=== PATIENT | male | born 1990 | race Caucasian/White ===

== ENCOUNTER 2016-07-06 00:22 | Inpatient (IN) ==
[2016-07-06 00:42] LABS: Basophils # 0.1 K/mcL (0.0-0.2); Basophils % 0.7 %; Eosinophils # 0.2 K/mcL (0.0-0.6); Hematocrit 46.1 % (37.5-50.1); Hemoglobin 16.1 g/dL (12.9-16.9); Immature Granulocytes % 0.3 % (0-4); Immature Platelets 3.5 % (1.1-6.1); Lymphocytes # 3.2 K/mcL (0.6-4.6); Lymphocytes % 28.8 %; Mean Corpuscular HGB Conc 34.9 g/dL (31.6-35.5); Mean Corpuscular Hemoglobin 30.1 pg (28.0-33.3); Mean Corpuscular Volume 86.3 fL (83.0-100.0); Mean Platelet Volume 8.6 fL (9.4-12.4); Monocytes # 0.7 K/mcL (0.0-1.3); Neutrophils # 6.8 K/mcL (1.6-8.9); Platelet Count 216 K/mcL (140-400); Red Blood Count 5.34 M/mcL (4.19-5.50); Red Cell Distribution Width 13.1 % (11.5-14.5); Segmented Neutrophils % 62.2 %
[2016-07-06 00:53] LABS: Bilirubin,Urine Negative (Negative); Blood,Urine Negative (Negative); Clarity,Urine Clear (Clear); Color,Urine Yellow (Yellow); Glucose,Urine (UA) Normal (Normal); Ketones,Urine Negative (Negative); Leukocyte Esterase,Urine Negative (Negative); Nitrite,Urine Negative (Negative); PH,Urine 6.5 pH Units (5.0-8.0); Protein,Urine Negative (Neg-Trace); Specific Gravity,Urine 1.005 (1.010-1.025); Urobilinogen,Urine Normal (Normal)
[2016-07-06 00:57] LABS: Acetaminophen < 1.0 mcg/mL (10-30); Alanine Aminotransferase 15 Units/L (0-55); Albumin 4.1 g/dL (3.5-5.0); Albumin/Globulin Ratio 1.1 (1.1-2.2); Alkaline Phosphatase 66 Units/L (38-126); Aspartate Amino Transferase 21 Units/L (5-34); BUN/Creatinine Ratio 14 (6-26); Bilirubin,Direct 0.2 mg/dL (0.0-0.5); Bilirubin,Indirect 0.2 mg/dL (0.0-1.2); Bilirubin,Total 0.4 mg/dL (0.2-1.2); Blood Urea Nitrogen 13 mg/dL (8-26); Carbon Dioxide 24 mEq/L (19-29); Chloride 103 mEq/L (98-109); Ethanol 203 mg/dL (0-10); Globulin 3.7 g/dL (2.4-3.5); Glucose 54 mg/dL (70-99); Osmolality,Calculated 284 (280-300); Salicylate < 5.0 mg/dL (15-30); Sodium 138 mEq/L (136-145); Total Protein 7.8 g/dL (6.0-8.3); eGFR For African Americans > 60 (> 60); eGFR For Non-African Americans > 60 (> 60)
[2016-07-06 00:59] LABS: Amphetamine Screen,Urine Negative ng/mL (Cutoff=1000); Barbiturate Screen,Urine Negative ng/mL (Cutoff=200); Benzodiazepines Screen,Urine Negative ng/mL (Cutoff=200); Cannabinoid Screen,Urine Negative ng/mL (Cutoff = 50); Cocaine Screen,Urine Negative ng/mL (Cutoff= 300); Opiate Screen,Urine Negative ng/mL (Cutoff=300); Phencyclidine Screen,Urine Negative ng/mL (Cutoff=25)
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
[2016-07-06 01:17] LABS: Thyroid Stimulating Hormone 3.055 mcIU/mL (0.350-4.840)
[2016-07-06] MEDS ORDERED: *HR* LORazepam 2 MG/ML VIAL IM ONE (01:56)
[2016-07-06] MEDS ORDERED: *HR* LORazepam 2 MG/ML VIAL ONE (01:58)
--- NOTE | 2016-07-06 07:19 | Emergency Department Note ---
Disposition Clinical Impression: Acute anxiety, ETOH abuse Depression Qualifiers: Depression Type: major depressive disorder Major depression recurrence: single episode Active/Remission status: currently active Major depression episode severity: moderate Qualified Code(s): F32.1 - Major depressive disorder, single episode, moderate Disposition: Admitted As Inpatient Condition: Good Referrals: NO,PCP [Primary Care Provider] - Forms: ED Satisfaction Letter Time of Disposition: 09:32 General Adult HPI - General Chief complaint: ED Psychiatric Symptoms Stated complaint: HI Time Seen by Provider: 07/06/16 00:29 Source: patient Limitations: no limitations - History of Present Illness Pain Scale: 0 - Related Data Previous Rx's Medication Instructions Recorded Citalopram [CeleXA] 20 mg PO DAILY #30 tablet 12/17/15 HydrOXYzine Pamoate 50 mg PO TID PRN #45 capsule 12/17/15 Quetiapine Fumarate [Seroquel] 50 mg PO HS PRN #60 tablet 12/17/15 Allergies Allergy/AdvReac Type Severity Reaction Status Date / Time haloperidol [From Haldol] AdvReac See Verified 07/06/16 00:27 Comments Constitutional: Denies: fever, chills, weakness ENT ED: Denies: throat pain, congestion, dysphagia Cardiovascular: Denies: chest pain, palpitations, dyspnea on exertion, edema, syncope Respiratory: Denies: cough, dyspnea, wheezes Gastrointestinal: Denies: abdominal pain, nausea, vomiting, diarrhea Genitourinary: Denies: urgency, dysuria, frequency, hematuria Musculoskeletal: Denies: back pain, neck pain, joint swelling, arthralgia Integumentary: Denies: rash, abrasion Neurological: Denies: headache, weakness, numbness, confusion Psychiatric: Reports: homicidal thoughts, other (Racing thoughts.). Denies: suicidal thoughts, auditory hallucinations, visual hallucinations Endocrine: Denies: fatigue Past Medical History - Past Medical History Medical history: Reports: no medical history Psychiatric history: Reports: anxiety, depression, prior suicide attempt, previous psychiatric hospitalization, other - Social History Smoking Status: Current every day smoker Smokeless Tobacco Status: No Alcohol use: Reports: occasionally, recent Drug use: Reports: opiates, marijuana Physical Exam - General Limitations: no limitations General appearance: alert, in no apparent distress, appears intoxicated Course - Reevaluation(s) Reevaluation #1: Patient was signed out to me at 7 AM by the department overnight ED attending Dr. Barlow. Please see copy of her notes for details of the initial evaluation and management. Received patient at 7 AM. Patient was treated have a repeat alcohol level, then have mental health consultation for homicidal ideations. Disposition pending. Patient is resting comfortably is hungry breakfast disorder. Patient stable Time: 07:18 Reevaluation #2: Repeat alcohol level came back as 58. Patient is medically cleared for mental health evaluation. Multiple services being contacted. Disposition pending. Patient stable. Time: 07:26 Reevaluation #3: She has had mental health evaluation, they have decided inpatient admission is warranted. Orders were placed. [place] slip on chart. Patient to be admitted in stable condition. Time: 09:31 Vital Signs Temperature 97.6 F 07/06/16 00:23 Pulse Rate 99 07/06/16 00:23 Respiratory Rate 18 07/06/16 00:23 Blood Pressure 131/80 07/06/16 00:23 O2 Sat by Pulse Oximetry 96 07/06/16 00:23 Temperature 97.6 F 07/06/16 04:16 Pulse Rate 93 07/06/16 04:16 Respiratory Rate 16 07/06/16 04:16 Blood Pressure 105/62 07/06/16 04:16 O2 Sat by Pulse Oximetry 96 07/06/16 04:16 Oxygen Delivery Oxygen Delivery Room Air Medical Decision Making - Lab Data Result diagrams: 07/06/16 00:36 07/06/16 00:36 Lab Results 07/06/16 07/06/16 07/06/16 Range/Units 00:36 00:36 00:45 WBC 10.9 (4.3-11.1) K/mcL RBC 5.34 (4.19-5.50) M/mcL Hgb 16.1 (12.9-16.9) g/dL Hct 46.1 (37.5-50.1) % MCV 86.3 (83.0-100.0) fL MCH 30.1 (28.0-33.3) pg MCHC 34.9 (31.6-35.5) g/dL RDW 13.1 (11.5-14.5) % Plt Count 216 (140-400) K/mcL MPV 8.6 L (9.4-12.4) fL Immature Gran % 0.3 (0-4) % Seg Neutrophils % 62.2 % Lymphocytes % 28.8 % Monocytes % 6.0 % Eosinophils % 2.0 % Basophils % 0.7 % Neutrophils # 6.8 (1.6-8.9) K/mcL Lymphocytes # 3.2 (0.6-4.6) K/mcL Monocytes # 0.7 (0.0-1.3) K/mcL Eosinophils # 0.2 (0.0-0.6) K/mcL Basophils # 0.1 (0.0-0.2) K/mcL Immature Plt Fraction 3.5 (1.1-6.1) % Sodium 138 (136-145) mEq/L Potassium 4.0 (3.5-4.5) mEq/L Chloride 103 (98-109) mEq/L Carbon Dioxide 24 (19-29) mEq/L BUN 13 (8-26) mg/dL Creatinine 0.93 (0.72-1.25) mg/dL Est GFR ( Amer) > 60 (> 60) Est GFR (Non-Af Amer) > 60 (> 60) BUN/Creatinine Ratio 14 (6-26) Glucose 54 L (70-99) mg/dL Calculated Osmolality 284 (280-300) Calcium 9.0 (8.6-10.8) mg/dL Total Bilirubin 0.4 (0.2-1.2) mg/dL Direct Bilirubin 0.2 (0.0-0.5) mg/dL Indirect Bilirubin 0.2 (0.0-1.2) mg/dL AST 21 (5-34) Units/L ALT 15 (0-55) Units/L Alkaline Phosphatase 66 (38-126) Units/L Serum Total Protein 7.8 (6.0-8.3) g/dL Albumin 4.1 (3.5-5.0) g/dL Globulin 3.7 H (2.4-3.5) g/dL Albumin/Globulin Ratio 1.1 (1.1-2.2) TSH 3.055 (0.350-4.840) mcIU/mL Urine Color Yellow (Yellow) Urine Clarity Clear (Clear) Urine pH 6.5 (5.0-8.0) pH Units Ur Specific [place] 1.005 L (1.010-1.025) Urine Protein Negative (Neg-Trace) mg/dL Urine Glucose (UA) Normal (Normal) mg/dL Urine Ketones Negative (Negative) mg/dL Urine Blood Negative (Negative) Urine Nitrite Negative (Negative) Urine Bilirubin Negative (Negative) Urine Urobilinogen Normal (Normal) mg/dL Ur Leukocyte Esterase Negative (Negative) Salicylates < 5.0 L (15-30) mg/dL Urine Opiates Screen (Ivfgkv=978) ng/mL Acetaminophen < 1.0 L (10-30) mcg/mL Ur Barbiturates Screen (Fujdke=034) ng/mL Ur Phencyclidine Scrn (Cutoff=25) ng/mL Ur Amphetamines Screen (Wfptbw=5646) ng/mL U Benzodiazepines Scrn (Onuiqj=441) ng/mL Urine Cocaine Screen (Cutoff= 300) ng/mL U Marijuana (THC) Screen (Cutoff = 50) ng/mL Ethyl Alcohol 203 H (0-10) mg/dL 07/06/16 07/06/16 Range/Units 00:45 06:55 WBC (4.3-11.1) K/mcL RBC (4.19-5.50) M/mcL Hgb (12.9-16.9) g/dL Hct (37.5-50.1) % MCV (83.0-100.0) fL MCH (28.0-33.3) pg MCHC (31.6-35.5) g/dL RDW (11.5-14.5) % Plt Count (140-400) K/mcL MPV (9.4-12.4) fL Immature Gran % (0-4) % Seg Neutrophils % % Lymphocytes % % Monocytes % % Eosinophils % % Basophils % % Neutrophils # (1.6-8.9) K/mcL Lymphocytes # (0.6-4.6) K/mcL Monocytes # (0.0-1.3) K/mcL Eosinophils # (0.0-0.6) K/mcL Basophils # (0.0-0.2) K/mcL Immature Plt Fraction (1.1-6.1) % Sodium (136-145) mEq/L Potassium (3.5-4.5) mEq/L Chloride (98-109) mEq/L Carbon Dioxide (19-29) mEq/L BUN (8-26) mg/dL Creatinine (0.72-1.25) mg/dL Est GFR ( Amer) (> 60) Est GFR (Non-Af Amer) (> 60) BUN/Creatinine Ratio (6-26) Glucose (70-99) mg/dL Calculated Osmolality (280-300) Calcium (8.6-10.8) mg/dL Total Bilirubin (0.2-1.2) mg/dL Direct Bilirubin (0.0-0.5) mg/dL Indirect Bilirubin (0.0-1.2) mg/dL AST (5-34) Units/L ALT (0-55) Units/L Alkaline Phosphatase (38-126) Units/L Serum Total Protein (6.0-8.3) g/dL Albumin (3.5-5.0) g/dL Globulin (2.4-3.5) g/dL Albumin/Globulin Ratio (1.1-2.2) TSH (0.350-4.840) mcIU/mL Urine Color (Yellow) Urine Clarity (Clear) Urine pH (5.0-8.0) pH Units Ur Specific [place] (1.010-1.025) Urine Protein (Neg-Trace) mg/dL Urine Glucose (UA) (Normal) mg/dL Urine Ketones (Negative) mg/dL Urine Blood (Negative) Urine Nitrite (Negative) Urine Bilirubin (Negative) Urine Urobilinogen (Normal) mg/dL Ur Leukocyte Esterase (Negative) Salicylates (15-30) mg/dL Urine Opiates Screen Negative (Buexkz=291) ng/mL Acetaminophen (10-30) mcg/mL Ur Barbiturates Screen Negative (Fijzuh=233) ng/mL Ur Phencyclidine Scrn Negative (Cutoff=25) ng/mL Ur Amphetamines Screen Negative (Xhmtpm=4789) ng/mL U Benzodiazepines Scrn Negative (Pgrmhz=073) ng/mL Urine Cocaine Screen Negative (Cutoff= 300) ng/mL U Marijuana (THC) Screen Negative (Cutoff = 50) ng/mL Ethyl Alcohol 58 H (0-10) mg/dL
[2016-07-06] MEDS: Nicotine 21 MG PATCH.TD24 TD SCH (10:17)
--- NOTE | 2016-07-06 13:14 | Psychiatry History & Physical ---
Date of Encounter: 07/06/16 Time of Encounter: 13:12 History of Present Illness Patient Stated Chief Complaint: homicidal,etoh intox Medicare Admission Attestation: For traditional Medicare patients the provided hospital inpatient services are reasonable and necessary and in the case of services not specified as inpatient -only under 42 CFR 419.22 (n), that they are appropriately provided as inpatient services in accordance 42 CFR 412.3. For [facility] the patient may reasonably be expected to be discharged or transferred to a hospital within 96 hours after admission to the Critical [facility]. Admitted From: Emergency Dept History of Present Illness: Mr. Jensen is a 26 year old male admitted from the emergency room for evaluation treatment of depression and homicidal ideation and alcohol intoxication. Patient has history of depression and alcohol abuse, they had an argument with his stepfather and was thinking about killing Him. He decided to come to the hospital to get some help and in the ER he was intoxicated, he was monitored until medically clear to be admitted to behavioral health. Patient had psychiatric hospitalization at this hospital from December 14 to 12/17/2015 with a diagnosis of depression and anxiety and alcohol abuse. The patient did not follow up as advised by continued to take his medication Seroquel and Celexa and hydroxyzine but he was not taking it regularly. He reports poor sleep, irritability, depressed mood, lack of motivation and a noncompliance with treatment. Past Med Surg Social Fam HX - Past Medical History Medical history: no medical history - Past Psychiatric History Psychiatric history: Reports: anxiety, depression, previous psychiatric hospitalization Past psychiatric history details: Hospitalization from December 14 to 12/17/2015 at [facility] for similar presentation. Family psychiatric history: Unknown Family History of Suicide: Unknown - Social History Smoking Status: Current every day smoker Smokeless Tobacco Status: No Alcohol use: occasionally, recent Drug use: opiates, marijuana Medications & Allergies Citalopram [CeleXA] 20 mg PO DAILY #30 tablet 12/17/15 [Rx] HydrOXYzine Pamoate 50 mg PO TID PRN #45 capsule 12/17/15 [Rx] Quetiapine Fumarate [Seroquel] 50 mg PO HS PRN #60 tablet 12/17/15 [Rx] Allergies haloperidol [From Haldol] Adverse Reaction (Verified 07/06/16 00:27) See Comments Patient reports, "It gave me lock jaw." Review of Systems Psychiatric: Reports: depression, anxiety, homicidal ideation, other (Alcohol intoxication) Mental Status Exam Patient orientation: Yes Person, Yes Time, Yes Place Level of alertness: Alert Patient appearance: Appropriate, Unkempt Behavior: cooperative, anxious Psychomotor activity: Normal Eye contact: Maintains Eye Contact Mood description: Depressed, Anxious Affect description: constricted, dysphoric, anxious Speech pattern: Normal rate, Normal rhythm, Normal tone, Appropriate Speech volume: Normal Thought process: Linear, Goal Oriented Thought content: No Suicidal ideation, Yes Homicidal ideation, No Overt delusions Perceptual disturbances: No Auditory hallucinations, No Visual hallucinations Attention span: Capable of Focused Attention Memory description: Grossly Intact Patient reliability: Reliable Historian Intelligence estimate: Below Average Judgment: Limited Insight: Partial Results - Vital Signs Vital signs: Temp Pulse Resp BP Pulse Ox 97.6 F 93 0 0/0 96 07/06/16 04:16 07/06/16 04:16 07/06/16 10:40 07/06/16 10:40 07/06/16 04:16 - Labs Labs: Laboratory Last Values WBC 10.9 K/mcL (4.3-11.1) 07/06/16 00:36 RBC 5.34 M/mcL (4.19-5.50) 07/06/16 00:36 Hgb 16.1 g/dL (12.9-16.9) 07/06/16 00:36 Hct 46.1 % (37.5-50.1) 07/06/16 00:36 MCV 86.3 fL (83.0-100.0) 07/06/16 00:36 MCH 30.1 pg (28.0-33.3) 07/06/16 00:36 MCHC 34.9 g/dL (31.6-35.5) 07/06/16 00:36 RDW 13.1 % (11.5-14.5) 07/06/16 00:36 Plt Count 216 K/mcL (140-400) 07/06/16 00:36 MPV 8.6 fL (9.4-12.4) L 07/06/16 00:36 Immature Gran % 0.3 % (0-4) 07/06/16 00:36 Seg Neutrophils % 62.2 % 07/06/16 00:36 Lymphocytes % 28.8 % 07/06/16 00:36 Monocytes % 6.0 % 03 00:36 Eosinophils % 2.0 % 07/06/16 00:36 Basophils % 0.7 % 07/06/16 00:36 Neutrophils # 6.8 K/mcL (1.6-8.9) 07/06/16 00:36 Lymphocytes # 3.2 K/mcL (0.6-4.6) 07/06/16 00:36 Monocytes # 0.7 K/mcL (0.0-1.3) 07/06/16 00:36 Eosinophils # 0.2 K/mcL (0.0-0.6) 07/06/16 00:36 Basophils # 0.1 K/mcL (0.0-0.2) 07/06/16 00:36 Immature Plt Fraction 3.5 % (1.1-6.1) 07/06/16 00:36 Sodium 138 mEq/L (136-145) 07/06/16 00:36 Potassium 4.0 mEq/L (3.5-4.5) 07/06/16 00:36 Chloride 103 mEq/L (98-109) 07/06/16 00:36 Carbon Dioxide 24 mEq/L (19-29) 07/06/16 00:36 BUN 13 mg/dL (8-26) 07/06/16 00:36 Creatinine 0.93 mg/dL (0.72-1.25) 07/06/16 00:36 Est GFR ( Amer) > 60 (> 60) 07/06/16 00:36 Est GFR (Non-Af Amer) > 60 (> 60) 07/06/16 00:36 BUN/Creatinine Ratio 14 (6-26) 07/06/16 00:36 Glucose 54 mg/dL (70-99) L 07/06/16 00:36 Calculated Osmolality 284 (280-300) 07/06/16 00:36 Calcium 9.0 mg/dL (8.6-10.8) 07/06/16 00:36 Total Bilirubin 0.4 mg/dL (0.2-1.2) 07/06/16 00:36 Direct Bilirubin 0.2 mg/dL (0.0-0.5) 07/06/16 00:36 Indirect Bilirubin 0.2 mg/dL (0.0-1.2) 07/06/16 00:36 AST 21 Units/L (5-34) 07/06/16 00:36 ALT 15 Units/L (0-55) 07/06/16 00:36 Alkaline Phosphatase 66 Units/L (38-126) 07/06/16 00:36 Serum Total Protein 7.8 g/dL (6.0-8.3) 07/06/16 00:36 Albumin 4.1 g/dL (3.5-5.0) 07/06/16 00:36 Globulin 3.7 g/dL (2.4-3.5) H 07/06/16 00:36 Albumin/Globulin Ratio 1.1 (1.1-2.2) 07/06/16 00:36 TSH 3.055 mcIU/mL (0.350-4.840) 07/06/16 00:36 Urine Color Yellow (Yellow) 07/06/16 00:45 Urine Clarity Clear (Clear) 07/06/16 00:45 Urine pH 6.5 pH Units (5.0-8.0) 07/06/16 00:45 Ur Specific [place] 1.005 (1.010-1.025) L 07/06/16 00:45 Urine Protein Negative mg/dL (Neg-Trace) 07/06/16 00:45 Urine Glucose (UA) Normal mg/dL (Normal) 07/06/16 00:45 Urine Ketones Negative mg/dL (Negative) 07/06/16 00:45 Urine Blood Negative (Negative) 07/06/16 00:45 Urine Nitrite Negative (Negative) 07/06/16 00:45 Urine Bilirubin Negative (Negative) 07/06/16 00:45 Urine Urobilinogen Normal mg/dL (Normal) 07/06/16 00:45 Ur Leukocyte Esterase Negative (Negative) 07/06/16 00:45 Salicylates < 5.0 mg/dL (15-30) L 07/06/16 00:36 Urine Opiates Screen Negative ng/mL (Wgdifv=190) 07/06/16 00:45 Acetaminophen < 1.0 mcg/mL (10-30) L 07/06/16 00:36 Ur Barbiturates Screen Negative ng/mL (Wyuykt=771) 07/06/16 00:45 Ur Phencyclidine Scrn Negative ng/mL (Cutoff=25) 07/06/16 00:45 Ur Amphetamines Screen Negative ng/mL (Ewznkv=8210) 07/06/16 00:45 U Benzodiazepines Scrn Negative ng/mL (Utczqt=766) 07/06/16 00:45 Urine Cocaine Screen Negative ng/mL (Cutoff= 300) 07/06/16 00:45 U Marijuana (THC) Screen Negative ng/mL (Cutoff = 50) 07/06/16 00:45 Ethyl Alcohol 58 mg/dL (0-10) H 07/06/16 06:55 Assessment and Plan (1) Homicidal ideation Current visit: Yes Status: Acute Plan: Admit inpatient for safety and stabilization, Close observation, Suicide Precautions per unit protocol, Encourage participation in unit milieu, Group Therapy, Monitor sleep, Monitor appetite Risks, benefits, side effects, alternatives discussed w/pt: Yes Patient agreeable to treatment: Yes (2) Alcohol dependence Current visit: No Status: Acute Plan: Admit inpatient for safety and stabilization, Close observation, Suicide Precautions per unit protocol, Encourage participation in unit milieu, Group Therapy, Monitor sleep, Monitor appetite Risks, benefits, side effects, alternatives discussed w/pt: Yes Patient agreeable to treatment: Yes Qualifiers: Substance use status: with intoxication Complication of substance-induced condition: uncomplicated Qualified Code(s): F10.220 - Alcohol dependence with intoxication, uncomplicated
[2016-07-06] MEDS ORDERED: MOM Conc 10 ML UD.LIQ PO PRN (14:08)
[2016-07-06] MEDS ORDERED: *HR* LORazepam 2 MG/ML VIAL IM PRN (14:08)
[2016-07-06] MEDS ORDERED: Mag Hydrox/Al Hydrox/Simeth 30 ML UDC PO PRN (14:08)
[2016-07-06] MEDS ORDERED: traZODone 50 MG TABLET PO PRN (14:08)
[2016-07-06] MEDS ORDERED: Ziprasidone 20 MG CAPSULE PO PRN (14:15)
[2016-07-06] MEDS ORDERED: Ziprasidone injection 20 MG/ML VIAL IM PRN (14:15)
[2016-07-06] MEDS: *HR* LORazepam 1 MG TABLET PO PRN (21:42)
[2016-07-07] MEDS: Nicotine 21 MG PATCH.TD24 TD SCH (08:41)
[2016-07-07] MEDS: *HR* LORazepam 1 MG TABLET PO PRN ×2 (10:52→20:59)
--- NOTE | 2016-07-07 12:55 | Psychiatry Progress Note ---
Date of Encounter: 07/07/16 Time of Encounter: 12:38 Subjective Interval history: Patient is seen for follow-up. Staff report he is cooperative and compliant with his medication interacting appropriately with his peers and staff. He reported improved sleep and denies homicidal ideation. He is concerned about AN introversive female patient slouched and disruptive, he stated to both reported is feeling to the nurse. He denied having any withdrawal symptoms from alcohol and responded well to when necessary Ativan. Reviewed medication was held and discussed with him how to improve his communication and socialization. He tell me he is anxious around people and having difficulty communicating to others. Review of Systems Psychiatric: Reports: depression, anxiety, homicidal ideation, other (Alcohol intoxication) Objective: Exam Patient orientation: Yes Person, Yes Time, Yes Place Level of alertness: Alert Patient appearance: Appropriate, Well Groomed Behavior: cooperative, anxious, guarded Psychomotor activity: Normal Eye contact: Maintains Eye Contact Mood description: Depressed, Anxious Affect description: constricted, anxious Speech pattern: Normal rate, Normal rhythm, Normal tone, Appropriate Speech volume: Normal Thought process: Linear, Goal Oriented Thought content: No Suicidal ideation, No Homicidal ideation, No Overt delusions Perceptual disturbances: No Auditory hallucinations, No Visual hallucinations Judgment: Limited Insight: Partial Results - Vital Signs Vital Signs: Temp Pulse Resp BP Pulse Ox 98.3 F 75 18 130/85 96 07/07/16 10:51 07/07/16 10:51 07/07/16 10:51 07/07/16 10:51 07/06/16 04:16 Assessment and Plan (1) Homicidal ideation Current visit: Yes Status: Acute Plan: Continue hospitalization, Close observation, Suicide Precautions per unit protocol, Encourage participation in unit milieu, Group Therapy, Monitor sleep, Monitor appetite Risks, benefits, side effects, alternatives discussed w/pt: Yes Patient agreeable to treatment: Yes (2) Alcohol dependence Current visit: No Status: Acute Risks, benefits, side effects, alternatives discussed w/pt: Yes Patient agreeable to treatment: Yes Qualifiers: Substance use status: with intoxication Complication of substance-induced condition: uncomplicated Qualified Code(s): F10.220 - Alcohol dependence with intoxication, uncomplicated Consult Discharge Plan - Plan Referrals: NO,PCP [Primary Care Provider] -
[2016-07-08] MEDS: Nicotine 21 MG PATCH.TD24 TD SCH (09:05)
[2016-07-08] MEDS: Acetaminophen 325 MG TABLET PO PRN (11:38)
[2016-07-08] MEDS: hydrOXYzine pamoate 25 MG CAPSULE PO PRN ×2 (11:38→16:46)
[2016-07-08] MEDS ORDERED: cloNIDine HCl 0.1 MG TABLET PO PRN (12:30)
--- NOTE | 2016-07-08 19:07 | Psychiatry Progress Note ---
Date of Encounter: 07/08/16 Time of Encounter: 19:04 Subjective Interval history: Pt reports that he gets angry very quickly and does not tolerate ignorant people and make threatening remarks to them. His impulsivity has brought him here. He is sleeping well now. No s/e to Celexa. Review of Systems Constitutional: Denies: fever, chills, weakness, weight change Eyes: Denies: eye pain, vision change Ears, Nose, Throat: Denies: ear pain, throat pain, dental pain, hearing loss, congestion Cardiovascular: Denies: chest pain, palpitations, dyspnea on exertion Respiratory: Denies: cough, dyspnea, wheezes Gastrointestinal: Denies: abdominal pain, nausea, vomiting, diarrhea, constipation Musculoskeletal: Denies: joint swelling, joint pain Neurological: Denies: headache, weakness, numbness, memory loss Psychiatric: Reports: anxiety, other (Alcohol intoxication, anger outburst.) Objective: Exam Patient orientation: Yes Person, Yes Time, Yes Place Level of alertness: Alert Patient appearance: Appropriate, Well Groomed Behavior: cooperative, anxious, guarded Psychomotor activity: Normal Eye contact: Maintains Eye Contact Mood description: Angry, Depressed, Anxious, Irritable Affect description: constricted, anxious Speech pattern: Normal rate, Normal rhythm, Normal tone, Appropriate Speech volume: Normal Thought process: Linear, Goal Oriented Thought content: No Suicidal ideation, No Homicidal ideation, No Overt delusions Perceptual disturbances: No Auditory hallucinations, No Visual hallucinations Judgment: Limited Insight: Partial Results - Vital Signs Vital Signs: Temp Pulse Resp BP Pulse Ox 98.4 F 73 16 140/96 96 07/08/16 16:00 07/08/16 16:00 07/08/16 16:00 07/08/16 16:00 07/06/16 04:16 Assessment and Plan (1) Acute anxiety Current visit: Yes Status: Acute Plan: Continue hospitalization, Close observation, Suicide Precautions per unit protocol, Encourage participation in unit milieu, Group Therapy, Monitor sleep, Monitor appetite (2) Depression Current visit: Yes Status: Acute Plan: Continue hospitalization, Close observation, Suicide Precautions per unit protocol, Encourage participation in unit milieu, Group Therapy, Monitor sleep, Monitor appetite Additional Plan: Pt will benefit from addition of a 2nd generation anti psychotic to address agitation and impulsivity and depression augmentation. Risks, benefits, side effects, alternatives discussed w/pt: Yes Patient agreeable to treatment: Yes Qualifiers: Depression Type: major depressive disorder Major depression recurrence: recurrent Active/Remission status: currently active Major depression episode severity: severe Psychotic features: with psychotic features Qualified Code(s): F33.3 - Major depressive disorder, recurrent, severe with psychotic symptoms (3) ETOH abuse Current visit: Yes Status: Acute Plan: Continue hospitalization, Close observation, Suicide Precautions per unit protocol, Encourage participation in unit milieu, Group Therapy, Monitor sleep, Monitor appetite (4) Alcohol dependence Current visit: No Status: Acute Plan: Continue hospitalization, Close observation, Suicide Precautions per unit protocol, Encourage participation in unit milieu, Group Therapy, Monitor sleep, Monitor appetite Risks, benefits, side effects, alternatives discussed w/pt: Yes Patient agreeable to treatment: Yes Qualifiers: Substance use status: with intoxication Complication of substance-induced condition: uncomplicated Qualified Code(s): F10.220 - Alcohol dependence with intoxication, uncomplicated (5) Depression Current visit: No Status: Acute Plan: Continue hospitalization, Close observation, Suicide Precautions per unit protocol, Encourage participation in unit milieu, Group Therapy, Monitor sleep, Monitor appetite Qualifiers: Depression Type: major depressive disorder Major depression recurrence: recurrent Active/Remission status: currently active Major depression episode severity: moderate Qualified Code(s): F33.1 - Major depressive disorder, recurrent, moderate (6) Generalized anxiety disorder Current visit: No Status: Acute Consult Discharge Plan - Plan Referrals: [facility] [Outside] - 07/11/16 10:45 am (The above appointment is with Luana Chu. Please arrive 15 minutes early to complete paperwork. Please bring your insurance card, photo ID and medications in their original bottles. If you do not have insurance, bring proof of income to apply for the sliding fee scale. If you are unable to keep this appointment , 24 hour business notice of cancellation is expected. ) Merged with [facility] [Outside] - 07/15/16 11:00 am (The above appointment is with Hailey Lopez. In order to have your case transferred to the [facility] office, you must meet with Hailey once so she may discuss transfer with you, and ensure smooth transition into the [facility] office.)
[2016-07-08] MEDS ORDERED: OLANZapine 5 MG TAB.RAPDIS PO SCH (19:30)
[2016-07-08] MEDS ORDERED: *HR* LORazepam 1 MG TABLET PO PRN (21:00)
[2016-07-08] MEDS ORDERED: *HR* LORazepam 1 MG TABLET PO SCH (21:00)
[2016-07-09] MEDS ORDERED: *HR* LORazepam 1 MG TABLET PO PRN (09:00)
[2016-07-09] MEDS ORDERED: Nicotine 2 MG GUM BC PRN (09:44)
[2016-07-09] MEDS: *HR* LORazepam 1 MG TABLET PO SCH ×3 (09:48→21:38)
[2016-07-09] MEDS: Nicotine 21 MG PATCH.TD24 TD SCH (09:59)
--- NOTE | 2016-07-09 13:20 | Psychiatry Progress Note ---
Date of Encounter: 07/09/16 Time of Encounter: 13:17 Subjective Interval history: Pt reports that his sleep is getting worse . It is fragmented and he is not feeling rested.. He started Zyprexa yesterday and did not have any side effects from it. He was drinking at home about a 12 pack per day. So he has been also having alcohol withdrawal symptoms for which he got started on Ativan which needs to be tapered off before he can be discharged. Review of Systems Constitutional: Denies: fever, chills, weakness, weight change Eyes: Denies: eye pain, vision change Ears, Nose, Throat: Denies: ear pain, throat pain, dental pain, hearing loss, congestion Cardiovascular: Denies: chest pain, palpitations, dyspnea on exertion Respiratory: Denies: cough, dyspnea, wheezes Gastrointestinal: Denies: abdominal pain, nausea, vomiting, diarrhea, constipation Musculoskeletal: Denies: joint swelling, joint pain Neurological: Denies: headache, weakness, numbness, memory loss Psychiatric: Reports: depression, anxiety, difficulty concentrating, irritability, other (Alcohol intoxication, anger outburst.) Objective: Exam Patient orientation: Yes Person, Yes Time, Yes Place Level of alertness: Alert Patient appearance: Appropriate, Well Groomed Behavior: cooperative, anxious, guarded Psychomotor activity: Normal Eye contact: Maintains Eye Contact Mood description: Angry, Depressed, Anxious, Irritable Affect description: constricted, anxious Speech pattern: Normal rate, Normal rhythm, Normal tone, Appropriate Speech volume: Normal Thought process: Linear, Goal Oriented Thought content: No Suicidal ideation, No Homicidal ideation, No Overt delusions Perceptual disturbances: No Auditory hallucinations, No Visual hallucinations Judgment: Limited Insight: Partial Results - Vital Signs Vital Signs: Temp Pulse Resp BP Pulse Ox 98.2 F 79 16 113/80 96 07/09/16 08:00 07/09/16 08:00 07/09/16 08:00 07/09/16 08:00 07/06/16 04:16 Assessment and Plan (1) Acute anxiety Current visit: Yes Status: Acute Plan: Continue hospitalization, Close observation, Suicide Precautions per unit protocol, Encourage participation in unit milieu, Group Therapy, Monitor sleep, Monitor appetite (2) Depression Current visit: Yes Status: Acute Plan: Continue hospitalization, Close observation, Suicide Precautions per unit protocol, Encourage participation in unit milieu, Group Therapy, Monitor sleep, Monitor appetite Additional Plan: Will start Doxepin to address insomnia. Increase Zyprexa to 10 mg hs Risks, benefits, side effects, alternatives discussed w/pt: Yes Patient agreeable to treatment: Yes Qualifiers: Depression Type: major depressive disorder Major depression recurrence: recurrent Active/Remission status: currently active Major depression episode severity: severe Psychotic features: with psychotic features Qualified Code(s): F33.3 - Major depressive disorder, recurrent, severe with psychotic symptoms (3) ETOH abuse Current visit: Yes Status: Acute Plan: Continue hospitalization, Close observation, Suicide Precautions per unit protocol, Encourage participation in unit milieu, Group Therapy, Monitor sleep, Monitor appetite (4) Alcohol dependence Current visit: No Status: Acute Plan: Continue hospitalization, Close observation, Suicide Precautions per unit protocol, Encourage participation in unit milieu, Group Therapy, Monitor sleep, Monitor appetite Risks, benefits, side effects, alternatives discussed w/pt: Yes Patient agreeable to treatment: Yes Qualifiers: Substance use status: with intoxication Complication of substance-induced condition: uncomplicated Qualified Code(s): F10.220 - Alcohol dependence with intoxication, uncomplicated (5) Depression Current visit: No Status: Acute Plan: Continue hospitalization, Close observation, Suicide Precautions per unit protocol, Encourage participation in unit milieu, Group Therapy, Monitor sleep, Monitor appetite Qualifiers: Depression Type: major depressive disorder Major depression recurrence: recurrent Active/Remission status: currently active Major depression episode severity: moderate Qualified Code(s): F33.1 - Major depressive disorder, recurrent, moderate (6) Generalized anxiety disorder Current visit: No Status: Acute Consult Discharge Plan - Plan Referrals: [facility] [Outside] - 07/11/16 10:45 am (The above appointment is with Luana Chu. Please arrive 15 minutes early to complete paperwork. Please bring your insurance card, photo ID and medications in their original bottles. If you do not have insurance, bring proof of income to apply for the sliding fee scale. If you are unable to keep this appointment , 24 hour business notice of cancellation is expected. ) [facility] [Outside] - 07/15/16 11:00 am (The above appointment is with Hailey Lopez. In order to have your case transferred to the [facility] office, you must meet with Hailey once so she may discuss transfer with you, and ensure smooth transition into the [facility].)
[2016-07-09] MEDS: Acetaminophen 325 MG TABLET PO PRN (13:25)
[2016-07-09] MEDS ORDERED: Ibuprofen 800 MG TABLET PO PRN (16:02)
[2016-07-09] MEDS ORDERED: OLANZapine 10 MG TAB.RAPDIS PO SCH (21:00)
[2016-07-10] MEDS: *HR* LORazepam 1 MG TABLET PO SCH ×2 (09:22→14:56)
--- NOTE | 2016-07-10 14:29 | Discharge Summary ---
Date of Encounter: 07/10/16 Time of Encounter: 14:27 Diagnosis - Discharge Diagnosis (1) Acute anxiety Status: Acute (2) Depression Status: Acute Qualifiers: Depression Type: major depressive disorder Major depression recurrence: recurrent Active/Remission status: currently active Major depression episode severity: severe Psychotic features: with psychotic features Qualified Code(s): F33.3 - Major depressive disorder, recurrent, severe with psychotic symptoms (3) ETOH abuse Status: Acute (4) Alcohol dependence Status: Acute Qualifiers: Substance use status: with intoxication Complication of substance-induced condition: uncomplicated Qualified Code(s): F10.220 - Alcohol dependence with intoxication, uncomplicated (5) Depression Status: Acute Qualifiers: Depression Type: major depressive disorder Major depression recurrence: recurrent Active/Remission status: currently active Major depression episode severity: moderate Qualified Code(s): F33.1 - Major depressive disorder, recurrent, moderate (6) Generalized anxiety disorder Status: Acute Medications - Discharge Medications Prescriptions: Citalopram [CeleXA] 30 mg PO DAILY #21 tablet Doxepin [Sinequan] 50 mg PO HS #15 capsule HydrOXYzine Pamoate 50 mg PO TID PRN #45 capsule PRN Reason: Anxiety LORazepam [Ativan] 0.5 mg PO TID #9 tablet OLANZapine [Zyprexa Zydis] 10 mg PO HS #15 tab.rapdis Citalopram [CeleXA] 30 mg PO DAILY #21 tablet 07/10/16 [Rx] Doxepin [Sinequan] 50 mg PO HS #15 capsule 07/10/16 [Rx] HydrOXYzine Pamoate 50 mg PO TID PRN #45 capsule 07/10/16 [Rx] LORazepam [Ativan] 0.5 mg PO TID #9 tablet 07/10/16 [Rx] OLANZapine [Zyprexa Zydis] 10 mg PO HS #15 tab.rapdis 07/10/16 [Rx] Allergies haloperidol [From Haldol] Adverse Reaction (Verified 07/06/16 00:27) See Comments Patient reports, "It gave me lock jaw." Provider Date of admission: 07/06/16 09:35 Primary care physician: PCP NO Discharging clinician: Tony Marie Assessment and Plan - Patient/Caregiver Discharge Instructions Activity: resume usual activities as tolerated Diet: regular diet - Follow up Plan Follow up with: [facility] [Outside] - 07/11/16 10:45 am (The above appointment is with Luana Chu. Please arrive 15 minutes early to complete paperwork. Please bring your insurance card, photo ID and medications in their original bottles. If you do not have insurance, bring proof of income to apply for the sliding fee scale. If you are unable to keep this appointment , 24 hour business notice of cancellation is expected. ) [facility] [Outside] - 07/15/16 11:00 am (The above appointment is with Hailey Lopez. In order to have your case transferred to the [facility] office, you must meet with Hailey once so she may discuss transfer with you, and ensure smooth transition into the [facility] office.) Functional capacity at discharge: independent ambulation Overall status at discharge: Stable Disposition: Home, Self-Care Hospital Course Hospital course: Mr. Jensen is a 26 year old male Does patient wish to continue nicotine replacement upon disc: Yes - Time Spent with Patient Total time spent providing and/or coordinating discharge services: Less than 30 minutes Quality - Multiple Antipsychotics Patient discharged on 2 or more antipsychotic medications: No Procedures - Procedures Procedures: Medication Management, Crisis Stabilization, Supportive Therapy, Group Therapy, Psychoeducational Therapy Mental Status Exam - Mental Status Exam Patient orientation: Yes Person, Yes Time, Yes Place Level of alertness: Alert Patient appearance: Appropriate, Well Groomed Behavior: cooperative, guarded Psychomotor activity: Normal Eye contact: Maintains Eye Contact Mood description: Depressed, Irritable Affect description: constricted, anxious Speech pattern: Normal rate, Normal rhythm, Normal tone, Appropriate Speech Volume: Normal Thought process: Linear, Goal Oriented Thought Content: No Suicidal ideation, No Homicidal ideation, No Overt delusions Perceptual Disturbances: No Auditory hallucinations, No Visual hallucinations Judgment: Fair Insight: Partial
[2016-07-10 14:56] VITALS: BP 147/86
[2016-07-11] MEDS ORDERED: *HR* LORazepam 0.5 MG TABLET PO PRN (09:00)
[2016-07-11] MEDS ORDERED: *HR* LORazepam 0.5 MG TABLET PO SCH (09:00)
[2016-07-12] MEDS ORDERED: *HR* LORazepam 0.5 MG TABLET PO SCH (21:00)
== END 2016-07-10 16:50 | disposition home or self-care (01) | DRG 751 ==
LOC: EMEROO 00:22 → 1ANU 09:35 → SUATTDRO 09:35 → 1ANU 10:50
PROVIDERS: ADMIT Psychiatry & Neurology Psychiatry; ATTEND Psychiatry & Neurology Psychiatry